=== PATIENT | female | born 1985 | race Caucasian/White ===

== ENCOUNTER 2018-02-22 18:35 | Inpatient (IN) ==
[2018-02-22] MEDS ORDERED: Sod Chloride 0.9% Inj 1,000 ML IV.CONT PRN (19:59)
[2018-02-22] MEDS ORDERED: fentaNYL Citrate Inj 100 MCG/2 ML Ampul IV.PUSH PRN ×2 (19:59)
[2018-02-22] MEDS ORDERED: Sodium Chlor 0.9% Inj 500 ML IV.SIG PRN (19:59)
[2018-02-22] MEDS ORDERED: Oxytocin 30 Units/500ml Premix 30 UNITS/500 ML BAG IV.SIG ONE (19:59)
[2018-02-22] MEDS ORDERED: Citric Acid/Sodium Citrate Liq 30 ML UDC PO SCH (20:00)
[2018-02-22] MEDS ORDERED: Sodium Chloride 0.9% 2 ML Flush PRN IV.FLUSH (20:03)
[2018-02-22 20:15] LABS: Baso # (Auto) 0.1 th/mm3 (0.0-0.2); Baso % (Auto) 0.4 % (0.0-2.0); Eos # (Auto) 0.1 th/mm3 (0.0-0.4); Eos % (Auto) 0.4 % (0.0-4.0); Hematocrit 39.3 % (35.0-46.0); Hemoglobin 13.2 gm/dL (11.6-15.3); Lymph # (Auto) 3.1 th/mm3 (1.0-4.8); Mean Corpuscular HGB Conc 33.7 % (32.0-36.0); Mean Corpuscular Hemoglobin 30.5 pg (27.0-34.0); Mean Corpuscular Volume 90.7 fL (80.0-100.0); Mean Platelet Volume 8.8 fL (7.0-11.0); Mono # (Auto) 0.7 th/mm3 (0.0-0.9); Mono % (Auto) 4.8 % (0.0-8.0); Neut # (Auto) 10.3 th/mm3 (1.8-7.7); Neut % (Auto) 72.4 % (16.0-70.0); Platelet Count 199 th/mm3 (150-450); Red Blood Count 4.34 mil/mm3 (4.00-5.30); Red Cell Distribution Width 13.9 % (11.6-17.2); White Blood Count 14.2 th/mm3 (4.0-11.0)
[2018-02-22 20:19] LABS: Bilirubin,Urine Negative (Negative); Clarity,Urine Hazy (Clear); Color,Urine Yellow (Yellw/Straw); Glucose,Urine (UA) Negative (Negative); Leukocyte Esterase,Urine Negative (Negative); Mucus,Urine Few /lpf (Occasional); Nitrite,Urine Negative (Negative); Squamous Epithelial Cell,Urine 1 /hpf (0-5)
[2018-02-22 20:22] LABS: Amphetamine Urine With Conf Neg (Neg); Benzodiazepine Urine With Conf Neg (Neg)
[2018-02-22] MEDS ORDERED: Sodium Chloride 0.9% 2 ML Flush BID IV.FLUSH SCH (21:00)
[2018-02-22] MEDS ORDERED: Zolpidem Tartrate 5 MG Tablet PO PRN (21:00)
[2018-02-22] MEDS ORDERED: Oxytocin 30 Units/500ml Premix 30 UNITS/500 ML BAG IV.SIG PRN (22:00)
[2018-02-23] MEDS ORDERED: fentaNYL 2MCG-Bupiv 0.125% Epi 150 ML EPIDURAL ONE (04:17)
[2018-02-23] MEDS ORDERED: Lidocaaine 1.5%/Epinephrine 1:200,000 PF Inj 5 ML Amp ONE (04:26)
[2018-02-23] MEDS ORDERED: fentaNYL 2MCG-Bupiv 0.125% Epi 150 ML EPIDURAL PRN (05:00)
[2018-02-23] MEDS ORDERED: fentaNYL Citrate Inj 100 MCG/2 ML Ampul EPIDURAL ONE (05:00)
[2018-02-23] MEDS ORDERED: Bisacodyl 10 MG Supp RECTAL PRN (07:12)
[2018-02-23] MEDS ORDERED: Oxytocin 30 Units/500ml Premix 30 UNITS/500 ML BAG IV.CONT PRN (07:12)
[2018-02-23] MEDS ORDERED: Acetaminophen 325 MG Tablet PO PRN (07:12)
[2018-02-23] MEDS ORDERED: Zolpidem Tartrate 5 MG Tablet PO PRN (07:12)
[2018-02-23] MEDS ORDERED: Naloxone Inj 0.4 MG/ML Vial IV.PUSH PRN (07:12)
[2018-02-23] MEDS ORDERED: Witch Hazel 50%/Glyderin 12.5% 40 Pad Jar RECTAL PRN (07:12)
[2018-02-23] MEDS ORDERED: Benzocaine 20% Top Spray 60 ML Can TOPICAL PRN (07:12)
--- NOTE | 2018-02-23 07:15 | P.OBDELI ---
Weeks Gestation: 39 Patient Started Active Labor: Yes Active Labor Start Date: 02/22/18 Medical Induction of Labor: No Artificial Rupture of Membrane: Yes Artificial ROM Date: 02/22/18 Artificial ROM Time: 14:10 Anesthesia: Epidural Episiotomy: none Vaginal Delivery: Normal Presentation: Occiput anterior Nuchal Cord: x2 Delayed Cord Clamping (45 sec): Yes Placenta: Spontaneous delivery, Intact, Uterus explored + Laceration: Perineal, 2 deg Repair: Vicryl running Infant: Male Additional Information: Nice delivery of Jaime Powell) Everyone there. No problems.
--- NOTE | 2018-02-23 12:53 | P.HP ---
History of Present Illness Service: LABOR AND DELIVERY Primary Care Physician: No Primary Care Physician Chief Complaint: SROM, TERM PREGNACY History of Present Illness: , 39 weeks was seen in the office 02/22, during cervical exam by Dr Leeanna CASPER clear fluid, exam was /-2 pt sent to hospital for admission, GBS negative - Diagnosis (1) Term (2) SROM (spontaneous rupture of membranes) Inpatient Certification: I certify that the inpatient services were ordered in accordance with Medicare regulations governing the order. This includes certification that hospital inpatient services are reasonable and necessary and in the case of services not specified as inpatient-only under 42 CFR 419.22(n), that they are appropriately provided as inpatient services in accordance to with the 2-midnight benchmark under 43 CFR 412.3(e) Estimated Total Length of Stay (Days): 3 Plans for Post Hospital Care: Home Review of Systems All other systems reviewed negative except as stated in HPI PMFSH - History History Provided By: Medical Record - Medical History Medical History: Medical History (Last Updated 02/23/18 @ 12:51 by NATALY Carr) 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 - Family History Family History: Family History (Last Updated 02/23/18 @ 12:51 by NATALY Carr) Mother Osteoporosis Malignant neoplasm of ovary Aunt Kidney disease Medications and Allergies Active Medications: Active Medications Acetaminophen (Tylenol) 650 mg PO Q4H PRN PRN Reason: PAIN SCALE 1 TO 2 Al Hydroxide/Mg Hydroxide (Milk Of Magnesia Liq) 30 ml PO Q12H PRN PRN Reason: Mild Constipation Benzocaine (Americaine 20% [place]) 1 spray TOPICAL Q4H PRN PRN Reason: For Perineum Discomfort Bisacodyl (Dulcolax Supp) 10 mg RECTAL DAILY PRN PRN Reason: SEVERE CONSITIPATION Diphtheria/Pertussis/Tetanus Vacc (Boostrix Vaccine Inj) 0.5 ml IM .ONCE ONE Stop: 02/23/18 16:01 Oxytocin (Pitocin 30 Units/Ns 500 Ml Premix) 30 units in 500 mls @ 100 mls/hr IV.CONT UNSCH PRN PRN Reason: Heavy bleeding Ibuprofen (Motrin) 800 mg PO Q8H PRN PRN Reason: For Cramping Lactulose (Lactulose Liq) 30 ml PO DAILY PRN PRN Reason: SEVERE CONSITIPATION Measles/Mumps/Rubella Vaccine Live (M-M-R Ii Vaccine Inj) 0.5 ml SQ .ONCE ONE Stop: 02/23/18 16:01 Naloxone HCl (Narcan Inj) 0.1 mg IV.PUSH Q2M PRN PRN Reason: for opiate reversal Ondansetron HCl (Zofran Odt) 4 mg PO Q6H PRN PRN Reason: NAUSEA OR VOMITING Vit/Calcium/Iron/Folic Ac (Stuartnatal Plus 3) 1 tab PO DAILY ROMIE Senna/Docusate Sodium (Shawna-Colace) 1 tab PO BID ROMIE Sennosides (Senokot) 17.2 mg PO Q12H PRN PRN Reason: Moderate Constipation Sodium Chloride (Ns Flush) 2 ml IV.FLUSH BID ROMIE Sodium Chloride (Ns Flush) 2 ml IV.FLUSH PRN PRN PRN Reason: FLUSH AFTER USING IV ACCESS Witch Mary/Glycerin (Tucks Pads) 1 applicatio RECTAL QID PRN PRN Reason: HEMORRHOIDS Zolpidem Tartrate (Ambien) 5 mg PO HS PRN PRN Reason: SLEEP Allergies Allergy/AdvReac Type Severity Reaction Status Date / Time erythromycin base Allergy Nausea/Vomi Verified 02/22/18 19:57 ting Home Medications Medication Instructions Recorded Confirmed Type [id number] [id number] 1 tab PO DAILY 02/22/18 02/22/18 History [] Exam Vital signs: Vital Signs 02/22/18 18:54 02/22/18 19:32 02/22/18 22:05 Temperature 98.2 F 98.4 F Pulse Rate 82 75 Respiratory Rate 18 17 Blood Pressure 114/74 108/45 L 02/22/18 23:13 02/22/18 23:58 02/23/18 00:59 Temperature 98.3 F Pulse Rate 74 66 Respiratory Rate 14 14 Blood Pressure 106/51 L 89/43 L 02/23/18 01:00 02/23/18 02:13 02/23/18 03:15 Temperature 98.0 F Pulse Rate 76 84 91 H Respiratory Rate 18 18 Blood Pressure 89/49 L 118/85 128/72 02/23/18 03:25 02/23/18 03:30 02/23/18 03:40 Temperature Pulse Rate 79 80 91 H Respiratory Rate Blood Pressure 02/23/18 03:45 02/23/18 03:50 02/23/18 04:05 Temperature Pulse Rate 80 79 78 Respiratory Rate Blood Pressure 02/23/18 04:40 02/23/18 04:45 02/23/18 04:55 Temperature Pulse Rate 75 70 71 Respiratory Rate Blood Pressure 110/50 L 117/62 86/57 L 02/23/18 05:01 02/23/18 05:08 02/23/18 05:25 Temperature 98.4 F Pulse Rate 67 72 Respiratory Rate 14 Blood Pressure 124/63 110/69 02/23/18 05:30 02/23/18 05:40 02/23/18 05:45 Temperature Pulse Rate 74 77 82 Respiratory Rate Blood Pressure 84/43 L 97/54 L 02/23/18 05:50 02/23/18 05:55 02/23/18 06:00 Temperature Pulse Rate 80 84 84 Respiratory Rate Blood Pressure 100/50 L 02/23/18 06:10 02/23/18 06:20 02/23/18 06:25 Temperature Pulse Rate 85 90 96 H Respiratory Rate Blood Pressure 98/38 L 02/23/18 06:30 02/23/18 06:35 02/23/18 06:50 Temperature Pulse Rate 84 77 82 Respiratory Rate Blood Pressure 106/66 111/67 02/23/18 07:15 02/23/18 07:16 02/23/18 07:22 Temperature 97.6 F Pulse Rate 93 H 84 Respiratory Rate 18 18 Blood Pressure 90/58 L 101/45 L 02/23/18 07:45 02/23/18 07:47 02/23/18 08:01 Temperature Pulse Rate 73 75 133 H Respiratory Rate 18 Blood Pressure 97/83 L 119/58 L 68/44 L 02/23/18 08:13 02/23/18 08:15 02/23/18 09:07 Temperature 97.8 F Pulse Rate 82 78 Respiratory Rate 18 18 Blood Pressure 94/64 L 109/61 Intake & Output 02/22/18 02/23/18 02/23/18 18:59 06:59 18:59 Intake Total 1000 / 1000 Balance 1000 / 1000 Weight 84.368 kg Intake: IV 1000 / 1000 LR 1000 mL Inj 1,000 ML @ 125 1000 / 1000 mls/hr IV.CONT .Q8H [facility] Rx#: [id number] Narrative: exam done by Dr Durán in office prior to admitting - Constitutional no acute distress - Routine HEENT Exam Head: Present: normocephalic - Routine Neck Exam Present: supple - Routine Respiratory Exam Present: CTA bilaterally - Routine Cardiovascular Exam Present: RRR, S1, S2 - Routine Abdominal Exam Present: normoactive bowel sounds Comments: gravid - Routine Extremities Exam Present: edema Comments: mild dependent edema - Routine Skin Exam Present: intact - Routine Neurological Exam Present: alert, oriented X3 Results - Labs CBC & Chem 7: 02/22/18 19:40 Labs: Laboratory Results - last 24 hr 02/22/18 02/22/18 02/22/18 19:27 19:27 19:40 WBC 14.2 H RBC 4.34 Hgb 13.2 Hct 39.3 MCV 90.7 MCH 30.5 MCHC 33.7 RDW 13.9 Plt Count 199 MPV 8.8 Neut % (Auto) 72.4 H Lymph % (Auto) 22.0 Harper % (Auto) 4.8 Eos % (Auto) 0.4 Baso % (Auto) 0.4 Neut # (Auto) 10.3 H Lymph # (Auto) 3.1 Harper # (Auto) 0.7 Eos # (Auto) 0.1 Baso # (Auto) 0.1 WBC Differential . Differential Comment Auto diff final Urine Color Yellow Urine Clarity Hazy H Urine pH 5.0 Ur Specific [place] 1.020 Urine Protein Negative Urine Glucose (UA) Negative Urine Ketones Trace H Urine Occult Blood Negative Urine Nitrate Negative Urine Bilirubin Negative Urine Urobilinogen Less than 2 Ur Leukocyte Esterase Negative Urine RBC 2 Urine WBC 1 Ur Squamous Epith Cells 1 Urine Mucus Few H Micro UA Comment Culture not ind Ur Microscopic Review Not Reportable Urine Culture Comments Culture not ind Urine Opiates Screen Neg Ur Barbiturates Screen Neg Ur Amphetamine Screen Neg U Benzodiazepines Scrn Neg Urine Cocaine Screen Neg U Cannabinoids Screen Neg Blood Type Blood Type Recheck 02/22/18 19:40 WBC RBC Hgb Hct MCV MCH MCHC RDW Plt Count MPV Neut % (Auto) Lymph % (Auto) Harper % (Auto) Eos % (Auto) Baso % (Auto) Neut # (Auto) Lymph # (Auto) Harper # (Auto) Eos # (Auto) Baso # (Auto) WBC Differential Differential Comment Urine Color Urine Clarity Urine pH Ur Specific [place] Urine Protein Urine Glucose (UA) Urine Ketones Urine Occult Blood Urine Nitrate Urine Bilirubin Urine Urobilinogen Ur Leukocyte Esterase Urine RBC Urine WBC Ur Squamous Epith Cells Urine Mucus Micro UA Comment Ur Microscopic Review Urine Culture Comments Urine Opiates Screen Ur Barbiturates Screen Ur Amphetamine Screen U Benzodiazepines Scrn Urine Cocaine Screen U Cannabinoids Screen Blood Type O Positive Blood Type Recheck Required Caprini VTE Risk Assessment Caprini VTE Risk Assessment: No/Low Risk (score <= 1) Caprini Risk Assessment Model: Point Value = 1 Point Value = 2 Point Value = 3 Point Value = 5 Age 41-60 Minor surgery BMI > 25 kg/m2 Swollen legs Varicose veins or History of unexplained or recurrent spontaneous Oral contraceptives or hormone replacement Sepsis (< 1 month) Serious lung disease, including pneumonia (< 1 month) Abnormal pulmonary function Acute myocardial infarction Congestive heart failure (< 1 month) History of inflammatory bowel disease Medical patient at bed rest Age 61-74 Arthroscopic surgery Major open surgery (> 45 min) Laparoscopic surgery (> 45 min) Malignancy Confined to bed (> 72 hours) Immobilizing plaster cast Central venous access Age >= 75 History of VTE Family history of VTE Factor V Leiden Prothrombin [id number] Lupus anticoagulant Anticardiolipin antibodies Elevated serum homocysteine Heparin-induced thrombocytopenia Other congenital or acquired thrombophilia Stroke (< 1 month) Elective arthroplasty Hip, pelvis, or leg fracture Acute spinal cord injury (< 1 month) Prophylaxis Regimen: Total Risk Factor Score Risk Level Prophylaxis Regimen 0-1 Low Early ambulation 2 Moderate Order ONE of the following: *Sequential Compression Device (SCD) *Heparin 5000 units SQ BID 3-4 Higher Order ONE of the following medications: *Heparin 5000 units SQ TID *Enoxaparin/Lovenox 40 mg SQ daily (WT < 150 kg, CrCl > 30 mL/min) *Enoxaparin/Lovenox 30 mg SQ daily (WT < 150 kg, CrCl > 10-29 mL/min) *Enoxaparin/Lovenox 30 mg SQ BID (WT < 150 kg, CrCl > 30 mL/min) AND/OR *Sequential Compression Device (SCD) 5 or more Highest Order ONE of the following medications: *Heparin 5000 units SQ TID (Preferred with Epidurals) *Enoxaparin/Lovenox 40 mg SQ daily (WT < 150 kg, CrCl > 30 mL/min) *Enoxaparin/Lovenox 30 mg SQ daily (WT < 150 kg, CrCl > 10-29 mL/min) *Enoxaparin/Lovenox 30 mg SQ BID (WT < 150 kg, CrCl > 30 mL/min) AND *Sequential Compression Device (SCD) Assessment and Plan - Assessment (1) Term Code(s): Z34.80 - Encounter for supervision of other normal , unspecified trimester Status: Acute Plan: vaginal delivery (2) SROM (spontaneous rupture of membranes) Status: Acute Plan: delivery - Plan plan for vaginal delivery Code Status: full code Discharge Planning: dc home in 2 days
[2018-02-23] MEDS: Prenatal Vit/Ca/Iron/Folic Acid Tablet PO SCH (14:59)
[2018-02-23] MEDS: Senna/Docusate Sodium 8.6/50 MG Tablet PO SCH ×2 (14:59→21:36)
[2018-02-23] MEDS ORDERED: Measles/Mumps/Rubella Vaccine Inj 0.5 ML Vial SQ ONE (16:00)
[2018-02-23] MEDS ORDERED: Diphtheria/Tetanus/Pertussis Vaccine Inj 0.5 ML Syringe IM ONE (16:00)
[2018-02-24 09:18] VITALS: O2SAT 97
--- NOTE | 2018-02-24 11:11 | P.PNOB ---
Subjective Post day: 1 Objective Vital Signs/I&O: Vital Signs 02/23/18 20:00 02/24/18 09:17 Temperature 98.4 F 97.8 F Pulse Rate 75 77 Respiratory Rate 17 18 Blood Pressure 116/72 105/64 Pulse Oximetry 97 Result Diagrams: 02/22/18 19:40 Objective Remarks: GENERAL: Well-nourished, well-developed patient. CARDIOVASCULAR: Regular rate and rhythm without murmurs, gallops, or rubs. RESPIRATORY: Breath sounds equal bilaterally. No accessory muscle use. ABDOMEN/GI: Abdomen soft, non-tender. Fundus: Firm, non-tender at umbilicus. GENITOURINARY: Light to moderate bleeding. EXTREMITIES: No cyanosis or edema, non-tender, without signs of DVT. Medications and IVs: Active Medications Acetaminophen (Tylenol) 650 mg PO Q4H PRN PRN Reason: PAIN SCALE 1 TO 2 Al Hydroxide/Mg Hydroxide (Milk Of Magnesia Liq) 30 ml PO Q12H PRN PRN Reason: Mild Constipation Benzocaine (Americaine 20% [place]) 1 spray TOPICAL Q4H PRN PRN Reason: For Perineum Discomfort Last Admin: 02/23/18 21:35 Dose: 1 spray Bisacodyl (Dulcolax Supp) 10 mg RECTAL DAILY PRN PRN Reason: SEVERE CONSITIPATION Oxytocin (Pitocin 30 Units/Ns 500 Ml Premix) 30 units in 500 mls @ 100 mls/hr IV.CONT UNSCH PRN PRN Reason: Heavy bleeding Ibuprofen (Motrin) 800 mg PO Q8H PRN PRN Reason: For Cramping Last Admin: 02/24/18 11:02 Dose: 800 mg Lactulose (Lactulose Liq) 30 ml PO DAILY PRN PRN Reason: SEVERE CONSITIPATION Naloxone HCl (Narcan Inj) 0.1 mg IV.PUSH Q2M PRN PRN Reason: for opiate reversal Ondansetron HCl (Zofran Odt) 4 mg PO Q6H PRN PRN Reason: NAUSEA OR VOMITING Vit/Calcium/Iron/Folic Ac (Stuartnatal Plus 3) 1 tab PO DAILY [facility] Last Admin: 02/23/18 14:59 Dose: Not Given Senna/Docusate Sodium (Shawna-Colace) 1 tab PO BID [facility] Last Admin: 02/23/18 21:36 Dose: 1 tab Sennosides (Senokot) 17.2 mg PO Q12H PRN PRN Reason: Moderate Constipation Sodium Chloride (Ns Flush) 2 ml IV.FLUSH BID ROMIE Last Admin: 02/23/18 14:59 Dose: Not Given Sodium Chloride (Ns Flush) 2 ml IV.FLUSH PRN PRN PRN Reason: FLUSH AFTER USING IV ACCESS Witch Mary/Glycerin (Tucks Pads) 1 applicatio RECTAL QID PRN PRN Reason: HEMORRHOIDS Last Admin: 02/23/18 21:34 Dose: 1 applicatio Zolpidem Tartrate (Ambien) 5 mg PO HS PRN PRN Reason: SLEEP Assessment and Plan - Diagnosis (1) Term Code(s): Z34.80 - Encounter for supervision of other normal , unspecified trimester Status: Resolved (2) SROM (spontaneous rupture of membranes) Status: Resolved (3) (normal spontaneous vaginal delivery) Code(s): O80 - Encounter for full-term uncomplicated delivery Status: Acute Plan: routine care - Plan pt doing well pain well managed with oral pain medication bonding with pt and having some problems, computer systems consultant will see her today routine care Discharge Planning: dc home tomorrow
--- NOTE | 2018-02-24 11:16 | P.DS ---
Date of admission: 02/23/18 06:52 Primary care physician: Katrin Primary Care Physician Attending physician on discharge: dr agosto Anticipated date of discharge: 02/25/18 Brief History from admission: , 39 weeks was seen in the office 02/22, during cervical exam by Dr Agosto SROM clear fluid, exam was 260/-2 pt sent to hospital for admission, GBS negative DS: Diagnosis - Discharge Diagnosis (1) (normal spontaneous vaginal delivery) Status: Acute DS: Summary Hospital Course: term srom clear fluid routine - Time Spent with Patient Total time spent providing and/or coordinating discharge services: Less than 30 minutes Exam Vital signs: Vital Signs 02/23/18 20:00 02/24/18 09:00 02/24/18 09:17 Temperature 98.4 F 97.8 F 97.8 F Pulse Rate 75 77 77 Respiratory Rate 17 18 18 Blood Pressure 116/72 105/64 105/64 Pulse Oximetry 97 Results Procedures completed during hospitalization: Discharge Plan - Discharge Disposition Patient Disposition: 01 Discharge Home - Discharge Condition Condition: Good - Discharge Order Discharge Orders: Discharge Order (Routine); Ordered 02/25/18 Ordered By: Lisa Dietrich BRICK GRADER Clear for Discharge (Routine); Ordered 02/25/18 Ordered By: Lisa Dietrich - Discharge Details Anticipated Discharge Date: 02/24/18 - Physicians Team Primary Care Provider: Katrin Desai Attending Provider: Lito Agosto - Rxs /Orders / Referrals /Forms Prescriptions: Continue [id number] fumarate-FA [] 28-800 mg-mcg Tablet 1 tab PO DAILY Referrals: Primary Care Katrin Cortes [Primary Care Provider] - See Instructions Lito Agosto MD [Physician] - See Instructions (call to make an appointment to be seen in 2 weeks) - Discharge Instructions Patient Printed Instructions: Preeclampsia and Eclampsia After Delivery (GEN) Additional Instructions: mother baby packet given. - Post Discharge Care Plan Care Plan Goals: Congratulations on your new baby! We want your recovery to be jara and trouble free. Please Report the Following Symptoms to Your Doctor: -Temperature above 100.5 degrees -Unusual pain or calf pain -Increased vaginal bleeding -Painful or difficulty urinating -Feelings of extreme sadness or anxiety Goals to Promote Your Health * To prevent worsening of your condition and complications * To maintain your health at the optimal level Directions to Meet Your Goals Take your medications as prescribed Follow your dietary instruction Follow activity as directed Ensure plenty of rest for recovery Drink fluids for hydration Keep your appointments as scheduled Take your immunizations and boosters as scheduled If your symptoms worsen call your OB Physician, or go to an Urgent Care Center or Emergency Room Smoking is Dangerous to your health. Avoid second hand smoke Call the 24-hour crisis hotline for domestic abuse at
[2018-02-24] MEDS: Senna/Docusate Sodium 8.6/50 MG Tablet PO SCH ×2 (13:11→20:32)
[2018-02-24] MEDS: Prenatal Vit/Ca/Iron/Folic Acid Tablet PO SCH (13:11)
[2018-02-25 07:37] VITALS: BP 106/60; PULSE 78; RESP 20; TEMP 98.4
[2018-02-25] MEDS: Senna/Docusate Sodium 8.6/50 MG Tablet PO SCH (11:45)
[2018-02-25] MEDS: Prenatal Vit/Ca/Iron/Folic Acid Tablet PO SCH (11:46)
== END 2018-02-25 19:18 | disposition home or self-care (01) ==
LOC: H2E 18:35 → H1EA 02-23 08:39
PROVIDERS: ADMIT Obstetrics & Gynecology; ATTEND Obstetrics & Gynecology